=== PATIENT | female | born 1970 | race African-American/Black ===

== ENCOUNTER 2022-05-30 16:04 | Emergency (ER) | payer OTHER, SELFPAY ==
[2022-05-30 16:20] VITALS: BP 154/86; PULSE 86; RESP 20; TEMP 37.1; O2SAT 98
--- NOTE | 2022-05-30 17:03 | ED.GENADULT ---
HPI - General Adult General Chief complaint: Upper Respiratory Infection Stated complaint: Vomit/Sore Throat Source: patient Mode of arrival: ambulatory Limitations: no limitations History of Present Illness HPI narrative: Patient presents for evaluation of nausea, vomiting, and a protrusion to the anterior aspect of her neck. She has noted a protrusion for the last few weeks but thought it was more prominent today after vomiting. She indicates she is no longer nauseous. She denies any fever, chills, abdominal pain, sore throat, otalgia, cough, shortness of breath, difficulty breathing or swallowing. No pain in the area of the protrusion. She is not on any prescription medications per her reports. No underlying history of hypertension or thyroid disease. Denies history of headaches. Denies recent abx or new foods that could have caused nausea and vomiting. No additional complaints or concerns. Related Data Home Medications Medication Instructions Recorded Confirmed Daily Fiber 05/30/22 collagen (bovine) 05/30/22 multivit with minerals-iron 18 tablet PO 05/30/22 mg-folic ac 400 mcg-vit K 25 mcg tablet (Adults Multivitamin) Allergies Allergy/AdvReac Type Severity Reaction Status Date / Time No Known Allergies Allergy Verified 05/30/22 16:27 Review of Systems Review of Systems: CONSTITUTIONAL: Denies fever, chills, or sweats. EYES: Denies visual changes, redness, or discharge. ENT: Denies rhinorrhea, congestion, sore throat, or otalgia. CARDIOVASCULAR: Denies chest pain, palpitations, or edema. RESPIRATORY: Denies cough or dyspnea. GASTROINTESTINAL: Reports nausea and vomiting earlier today, now resolved. Denies abdominal pain or diarrhea. GENITOURINARY: Denies dysuria or hematuria. SKIN: Reports protrusion to the anterior aspect of her neck. Denies rash or itching. MUSCULOSKELETAL: Denies back pain, joint pain, or myalgia. NEUROLOGIC: Denies headache, numbness, dizziness, or weakness. PSYCHIATRIC: Denies anxiety or depression. [facility] Past Medical History Medical History No pertinent past medical history Surgical History Surgical History No pertinent past surgical history Family History Family History Mother Family history non-contributory Social History Social History Smoking status: Never smoker Substance use: never Living arrangements: with family Gender identity (if verbalized by the patient): Female Sexual Orientation (if Verbalized by the Patient): Straight or Heterosexual Spiritual care concerns: No Exam Narrative: GENERAL: Well-appearing, well-nourished, and in no acute distress. HEAD: Normocephalic, atraumatic. EYES: PERRLA and EOMI. ENT: Nares clear, no rhinorrhea or epistaxis. Mucous membranes moist. Oropharynx without tonsillar hypertrophy exudate or other lesions. Bilateral TMs pearly dumont nonbulging NECK: Supple. Approximately 1.5 cm area of soft tissue swelling noted to the anterior aspect of neck adjacent to the trachea on the right. No carotid bruits or JVD CHEST: Clear to auscultation. No respiratory distress. No wheezes rales or rhonchi HEART: Regular rate and rhythm. No murmur heard. Normal peripheral pulses. ABDOMEN: Soft, nontender, nondistended, normal active bowel sounds. EXTREMITIES: Normal range of motion. No edema. SKIN: Warm, dry, no rash. NEURO: No focal deficits. Alert and oriented x3. PSYCH: Normal mood and affect. Course Course Emergency Course: This is a 52-year-old female that presented for evaluation of nausea, vomiting, and some swelling to the anterior aspect of her neck. She was strep negative here. There is a broad range of differentials which could explain her symptoms. Advise she f
== END 2022-05-30 17:07 | disposition home or self-care (01) ==
PROVIDERS: Emergency Provider Nurse Practitioner
DX: R22.1 Localized swelling, mass and lump, neck (principal); R11.2 Nausea with vomiting, unspecified
CPT/HCPCS: 87081; 87880; 99213; G0463

== ENCOUNTER 2022-06-12 15:47 | Outpatient (CLI) | payer OTHER, SELFPAY ==
--- NOTE | ~2022-06-12 | US_ITS ---
EXAMINATION: US thyroid DATE: 06/12/2022 16:09 INDICATION: Nontoxic single thyroid nodule. TECHNIQUE: Multiple ultrasound images of the thyroid were obtained. COMPARISON: None. FINDINGS: The right thyroid lobe measures 4.4 x 1.5 x 1.3 cm. The left thyroid lobe measures 4.1 x 1.8 x 1.6 c m. In the left thyroid lobe, there is a 4 mm solid, very hypoechoic, wider than tall nodule with smo oth margin without echogenic foci (TI-RADS TR4). IMPRESSION: 1. Small thyroid nodule, likely not clinically significant. No follow-up is needed. Reviewed, dictated and finalized at location A. IMPRESSION: 1. Small thyroid nodule, likely not clinically significant. No follow-up is nee ded.
== END 2022-06-12 15:48 ==
PROVIDERS: PCP Otolaryngology; Visit Provider Otolaryngology
DX: E04.1 Nontoxic single thyroid nodule (principal)
CPT/HCPCS: 76536

== ENCOUNTER 2024-06-29 14:20 | Emergency (ER) | payer OTHER, SELFPAY ==
--- NOTE | 2024-06-29 14:24 | ED.GENADULT ---
HPI - General Adult General Chief complaint: Nausea/Vomiting/Diarrhea Stated complaint: Vomiting Time Seen by Provider: 06/29/24 14:29 Source: patient, RN notes reviewed and old records reviewed Mode of arrival: ambulatory Limitations: no limitations History of Present Illness HPI narrative: 54 presents to the [facility] of vomiting and diarrhea since this morning. [place] feverish. patient is currently Drinking a Sprite without issue. Patient denies any other symptoms other than vomiting a couple of times today with 5 episodes of diarrhea. no treatment prior to arrival Related Data Home Medications ?Medication ?Instructions ?Recorded ?Confirmed ?Last Taken ?Type Daily Fiber 05/30/22 06/01/22 Unknown History collagen (bovine) 05/30/22 06/01/22 Unknown History multivit with minerals-iron 18 tablet PO 05/30/22 06/01/22 Unknown History mg-folic ac 400 mcg-vit K 25 mcg tablet (Adults Multivitamin) Allergies Allergy/AdvReac Type Severity Reaction Status Date / Time No Known Allergies Allergy Verified 06/29/24 14:22 Review of Systems Review of Systems: All systems reviewed & are unremarkable except as noted in HPI and below Constitutional: Constitutional: Reports no additional constitutional complaints ENT: Reports system reviewed and no additional complaints, except as documented Cardiovascular: Cardiovascular: Reports no additional cardiovascular complaints, Denies chest pain and Denies dyspnea Respiratory: Respiratory: Reports no additional respiratory complaints, Denies chest congestion, Denies cough and Denies dyspnea Gastrointestinal: Gastrointestinal: Reports as per HPI, Denies abdominal pain, Reports diarrhea and Reports vomiting Musculoskeletal: Musculoskeletal: Reports no additional musculoskeletal complaints Integumentary/Breasts: Skin/Breast: Reports system reviewed and no additional complaints, except as docu PMFSH Past Medical History Medical History No pertinent past medical history Surgical History Surgical History No pertinent past surgical history Family History Family History Mother Family history non-contributory Social History Social History (Updated 06/01/22 @ 11:47 by TERRA Burgos) Smoking status: Never smoker Alcohol intake: never Substance use: never Lack of Transportation: No Lack of Food: Never True Current Housing: I Have Housing Concerned About Future Housing: No Difficulty Paying Gas/Electric Bills: No Difficulty Paying for Meds: No Currently Unemployed: YES Education: High School Diploma/GED Difficulty w/ Childcare or Family Care: No Living arrangements: with family Gender identity (if verbalized by the patient): Female Sexual Orientation (if Verbalized by the Patient): Straight or Heterosexual Spiritual care concerns: No Comments At the time of my signature, I reviewed and agree with the nursing past medical, surgical, social, and family history. There is no relevant family history pertinent to the patient complaint. Exam Const: General: cooperative, healthy appearing, comfortable, no acute distress, well developed, alert and well nourished Nutritional Appearance: well nourished and obese Orientation/consciousness: patient oriented x3 Limitations: no limitations HENMT: Head: normal to inspection Ears: hearing grossly normal bilaterally, external ears normal, TM's normal bilaterally, EAC's normal, mastoids normal and no periauricular adenopathy Face/Nose/Sinus: Normal external nose present and Normal nares present Face and sinus: normal facial exam and face symmetric Mouth: Yes Normal oral and palatal mucosa present, Yes lip normal, Yes tongue normal and Yes moist mucous membranes Eyes: General: appearance normal, both eyes and all related structures Alignment and Position: alignment normal Neck: Neck: normal visual inspection, full ROM, no lymphadenopathy and no meningeal signs Chest: Chest palpation & inspection: normal inspection of the chest Resp: Effort & Inspection: normal respiratory effort and able to speak in complete sentences Auscultation: clear to auscultation bilaterally, no crackles, no rales, no rhonchi and no wheezes Cardio: Rate: regular rate GI: GI Palp: No abdominal tenderness, Yes Soft to palpation, No Tenderness to palpation present (GI) and No Guarding due to palpation present (GI) : General: Yes no CVA tenderness Skin: General skin exam: normal color and no rashes or lesions noted Neuro: General: patient oriented x3, gait normal, moves all extremities and no meningeal signs Cognition (Neuro): normal cognition Speech: normal speech Gait exam (Neuro): Normal gait present Extrem: General: normal to inspection, full ROM, capillary refill normal and normal gait Psych: Appearance: grossly normal and well kempt Mental Status: mental status grossly normal Speech and movement: Normal speech and movement present and Clear speech present Affect: normal affect Attitude: cooperative Course Course Level of Care: Express Care Visit Vital Signs Vital signs: Vital Signs Temperature 99.1 F 06/29/24 14:33 Pulse Rate 102 H 06/29/24 14:33 Respiratory Rate 19 06/29/24 14:33 Blood Pressure 145/89 H 06/29/24 14:33 Pulse Oximetry 98 06/29/24 14:33 Oxygen Delivery Room Air 06/29/24 14:33 Temperature 99.1 F 06/29/24 14:33 Pulse Rate 102 H 06/29/24 14:33 Respiratory Rate 19 06/29/24 14:33 Blood Pressure 145/89 H 06/29/24 14:33 Pulse Oximetry 98 06/29/24 14:33 Oxygen Delivery Room Air 06/29/24 14:33 Reviewed Medical Decision Making MDM Narrative Medical decision making narrative: Patient sitting comfortably in exam room. Nontoxic, vitals stable. Patient in no acute distress Patient presents for several episodes of vomiting in a several episodes of diarrhea since waking up this morning. Denies any other symptoms. Denies chest pain, shortness of breath, abdominal pain. No CVA tenderness, no urinary does frequency urgency or burning. Denies fevers, patient is tolerating liquids without issue patient requesting a work note for today and tomorrow patient appropriate for outpatient treatment with close follow-up Discharge instructions reviewed with patient, as well as provided in writing per nursing staff. The instructions also include specific and strict return/GO TO THE ER as well as f/u information. All questions have been answered, and the patient deny any further questions with discharge and discharge plan. Some parts of this dictation were generated by voice recognition software and may contain typographical and/or grammatical inaccuracies. Differential Diagnosis Differential Diagnosis: gastroenteritis. acute nausea vomiting, acid reflux Medical Records Medical records reviewed: Yes I reviewed the external patient's medical records. Vital Signs Vital Signs: Vital Signs Temperature 99.1 F 06/29/24 14:33 Pulse Rate 102 H 06/29/24 14:33 Respiratory Rate 19 06/29/24 14:33 Blood Pressure 145/89 H 06/29/24 14:33 Pulse Oximetry 98 06/29/24 14:33 Oxygen Delivery Room Air 06/29/24 14:33 Temperature 99.1 F 03/30/25 14:33 Pulse Rate 102 H 06/29/24 14:33 Respiratory Rate 19 06/29/24 14:33 Blood Pressure 145/89 H 06/29/24 14:33 Pulse Oximetry 98 06/29/24 14:33 Oxygen Delivery Room Air 06/29/24 14:33 Reviewed Lab Data Lab results reviewed: Yes I reviewed the patient's lab results. Labs: Reviewed Critical Care Time Critical Care Time Critical Care Time: No Discharge Plan Discharge Clinical Impression: Nausea vomiting and diarrhea Patient Disposition: Home, Self-Care Condition: Stable Instructions: Antibiotic Form, Acute Nausea and Vomiting (ED), Acute Diarrhea (ED) Additional Instructions: today your blood pressure was 145/89. Please follow-up with your primary care provider within the next 2 weeks to have this rechecked. keep your diet very simple. Nothing fried, greasy, spicy are highly processed for 1 week. Take nausea medications as prescribed be sure to increase your fluid intake to include water, Gatorade, Pedialyte, ice pops in Jell-O. Avoid anything high in caffeine, carbonation or high in sugar follow-up with primary care provider this week for new or worsening symptoms such as but not limited to unable to keep fluids down, abdominal pain, uncontrolled diarrhea please proceed to the nearest emergency room Patient Language: Portuguese Prescriptions: New ondansetron HCl 4 mg tablet 4 mg PO Q8H PRN (Reason: nausea and vomiting) Qty: 7 0RF Discontinued ondansetron 4 mg tablet,disintegrating 4 mg PO Q6H PRN (Reason: nausea and vomiting) Qty: 12 0RF No Action Adults Multivitamin 18 mg iron-400 mcg-25 mcg Tablet PO Daily Fiber collagen (bovine) Follow-up/Referrals: Erick Dunne MD [Physician] - Stand Alone Forms: Work/School Release IP Time of Disposition: 14:47
[2024-06-29 14:33] VITALS: BP 145/89; PULSE 102; RESP 19; TEMP 37.3; O2SAT 98
== END 2024-06-29 14:50 | disposition home or self-care (01) ==
PROVIDERS: Emergency Provider Nurse Practitioner; PCP Otolaryngology
DX: R11.2 Nausea with vomiting, unspecified (principal); R19.7 Diarrhea, unspecified
CPT/HCPCS: 99213; G0463